=== PATIENT | male | born 1975 | race Caucasian/White ===

== ENCOUNTER 2017-04-01 04:56 | Emergency (ER) | payer MEDICAID, OTHER ==
--- NOTE | 2017-04-01 05:45 | C.PDOC ---
History Of Present Illness pt presents with abdominal pain, nausea, vomiting worsening over the last few days. Has had some chest discomfort associating with vomiting, but denies any chest pain at the present time. Speaking in complete sentences, No fever, chills. decreased po intake, other than alcohol . Pt is a heavy alcohol user. Time Seen by Provider: 04/01/17 05:45 Chief Complaint (Nursing): GI Problem History Per: Patient History/Exam Limitations: no limitations Onset/Duration Of Symptoms: Days Current Symptoms Are (Timing): Still Present Context: Other (alcohol) Severity: Moderate Pain Scale Rating Of: 5 Location Of Pain/Discomfort: Diffuse Radiation Of Pain To:: None Quality Of Discomfort: Dull, Aching, Cramping Associated Symptoms: Nausea, Vomiting, Loss Of Appetite Exacerbating Factors: Other (alcohol) Alleviating Factors: None Last Bowel Movement: Yesterday Recent travel outside of the [place]: No Additional History Per: Family Past Medical History Reviewed: Historical Data, Nursing Documentation, Vital Signs Vital Signs: Last Vital Signs Temp 98.4 F 04/01/17 05:06 Pulse 74 04/01/17 05:06 Resp 18 04/01/17 05:06 BP 110/74 04/01/17 05:06 Pulse Ox 97 04/01/17 06:01 - Medical History PMH: Anxiety, Asthma, Bipolar Disorder, Depression, Hepatitis - [facility] Procedures INDIVID PSYCHOTHERAP NEC (05/28/15) OTHER GROUP THERAPY (05/28/15) Family History: States: No Known Family Hx - Social History Hx Tobacco Use: Yes Hx Alcohol Use: Yes Hx Substance Use: Yes (heroin use) - Immunization History Hx Tetanus Toxoid Vaccination: No Hx Influenza Vaccination: No Hx Pneumococcal Vaccination: Yes Review Of Systems Constitutional: Negative for: Fever, Chills Eyes: Negative for: Vision Change ENT: Negative for: Throat Pain Cardiovascular: Negative for: Chest Pain Respiratory: Negative for: Shortness of Breath Gastrointestinal: Positive for: Nausea, Vomiting, Abdominal Pain Genitourinary: Negative for: Dysuria Musculoskeletal: Negative for: Back Pain Skin: Negative for: Rash Neurological: Negative for: Weakness Psych: Negative for: Anxiety Physical Exam - Physical Exam Appears: Non-toxic Skin: Warm, Dry Head: Normacephalic Eye(s): bilateral: Normal Inspection Oral Mucosa: Moist Neck: Trachea Midline, Supple Chest: Symmetrical Cardiovascular: Rhythm Regular Respiratory: No Rales, No Rhonchi, No Wheezing Gastrointestinal/Abdominal: Soft, Tenderness, No Distention, No Guarding, No Rebound Back: No CVA Tenderness Extremity: No Tenderness Extremity: Bilateral: Atraumatic, Normal Color And Temperature Neurological/Psych: Oriented x3, Normal Speech, Normal Cognition Gait: Steady ED Course And Treatment - Laboratory Results Result Diagrams: 04/01/17 06:12 04/01/17 06:12 O2 Sat by Pulse Oximetry: 97 Disposition Counseled Patient/Family Regarding: Studies Performed, Diagnosis - Disposition Disposition Time: 05:45 Condition: UNKNOWN - Clinical Impression Clinical Impression: Abdominal pain, Substance abuse, Alcohol abuse Physician Patient Turnover Patient Signed Over To: Tio See Handoff Comments: pending labs , ct scan and disposition
[2017-04-01] MEDS ORDERED: Sodium Chloride 0.9% 1,000 ML IV ONE (05:53)
[2017-04-01] MEDS ORDERED: Sodium Chloride 0.9% 1,000 ML ONE (06:14)
[2017-04-01 06:15] LABS: BASO % 0.8 % (0.0-2.0); EOS # 0.2 K/uL (0.0-0.7); EOS % 3.3 % (0.0-4.0); HEMATOCRIT 39.7 % (35.0-51.0); LYMPH # 1.6 K/uL (1.0-4.3); LYMPH % 27.6 % (20.0-40.0); MEAN CELL VOLUME 85.4 fL (80.0-94.0); MEAN CORPUSCULAR HEMOGLOBIN 28.9 pg (27.0-31.0); MEAN CORPUSCULAR HGB CONC 33.8 g/dL (33.0-37.0); MEAN PLATELET VOLUME 8.1 fL (7.2-11.7); MONO # 0.6 K/uL (0.0-0.8); MONO % 10.1 % (0.0-10.0); RED CELL DISTRIBUTION WIDTH 14.8 % (11.5-14.5); WHITE BLOOD COUNT 5.9 K/uL (4.8-10.8)
[2017-04-01 06:23] LABS: INR 1.1
[2017-04-01 06:29] LABS: CHLORIDE 96 mmol/L (98-107); POTASSIUM 3.5 mmol/L (3.6-5.2); SODIUM 134 mmol/L (132-148)
[2017-04-01 06:31] LABS: ALB/GLOB RATIO 0.9 (1.0-2.1); ALKALINE PHOSPHATASE 71 U/L (38-126); AST/SGOT 36 U/L (17-59); BILIRUBIN,TOTAL 1.1 mg/dL (0.2-1.3); CARBON DIOXIDE 27 mmol/L (22-30); GFR AFRICAN-AMERICAN > 60; TOTAL PROTEIN 7.6 g/dL (6.3-8.3)
[2017-04-01 06:32] LABS: ALCOHOL SERUM < 10 mg/dl (0-10); ALT/SGPT 33 U/L (21-72); BLOOD UREA NITROGEN 6 mg/dL (9-20); CALCIUM 8.6 mg/dl (8.6-10.4); GLUCOSE,RANDOM 101 mg/dL (75-110)
[2017-04-01 06:55] LABS: RBC URINE 1 /hpf (0-3); URINE BILIRUBIN NEGATIVE (NEGATIVE); URINE BLOOD NEGATIVE (NEGATIVE); URINE COLOR Yellow (YELLOW); URINE GLUCOSE (UA) NORMAL (Normal); URINE KETONE NEGATIVE (NEGATIVE); URINE LEUKOCYTE ESTERASE NEG Leu/uL (Negative); URINE PROTEIN NEGATIVE (NEGATIVE); WBC URINE < 1 /hpf (0-5)
[2017-04-01] MEDS ORDERED: Iodixanol 320 MG/ML 100 ML BOTTLE IV ONE (06:59)
[2017-04-01 07:26] VITALS: BP 98/65; PULSE 65; RESP 16; TEMP 98.5; O2SAT 99
--- NOTE | 2017-04-01 11:57 | CT ---
PROCEDURE: CT abdomen and pelvis dated 04/01/2017. HISTORY: Abdominal pain, alcohol abuse COMPARISON: Comparison made with prior study 05/23/2016 . TECHNIQUE: Contiguous axial images of the abdomen and pelvis. Oral contrast was administered. No IV contrast given. Coronal and Sagittal reformats generated. Radiation dose: Total exam DLP = 484.90 mGy-cm. This CT exam was performed using one or more of the following dose reduction techniques: Automated exposure control, adjustment of the mA and/or kV according to patient size, and/or use of iterative reconstruction technique. FINDINGS: LOWER THORAX: Mild bibasilar atelectasis. No evidence of effusion or basilar pneumothorax. Tiny hiatal hernia with slight wall thickening of the distal esophagus could be due to protrusion of gastric mucosa. Esophagitis not other intrinsic/invasive wall lesion not excluded. LIVER: Liver is mildly enlarged measuring over 18 cm in CC dimension. Mild fatty hepatic infiltration. No obvious hepatic mass collection or calcification. Portal and splenic veins are opacified. GALLBLADDER AND BILE DUCTS: Gallbladder appears incompletely distended. There is a small low-attenuation focus within the gallbladder lumen consistent with a tiny cholesterol stone. There is also new minimal gallbladder wall thickening and enhancement. Rule out cholecystitis. . No evidence of significant intra or extrahepatic biliary ductal dilatation. PANCREAS: The pancreas appears somewhat atrophic and fatty replaced. . There are vague infiltration changes also seen in the pancreatic of fat most pronounced in the pancreatic head region. Findings could represent concomitant mild pancreatitis. Recommend correlation serum amylase and lipase. SPLEEN: Spleen is enlarged measuring approximately 16.5 cm in CC dimension. No definitive splenic masses or collections seen. ADRENALS: There are no adrenal lesions. KIDNEYS AND URETERS: Unrem kidneys demonstrate symmetric nephrograms. No evidence of nephrolithiasis or hydronephrosis. BLADDER: Urinary bladder is incompletely distended which may account for slight thick-walled appearance. Muscular hypertrophy may contribute. Rule out cystitis or other intrinsic/invasive wall lesion. REPRODUCTIVE: Prostate gland measures approximately 4.4 cm in transverse dimension. . APPENDIX: Appendix is not seen with complete certainty. No obvious inflammatory changes right lower quadrant of the abdomen. BOWEL: Evaluation of the bowel is limited due to the lack of oral contrast material. Stomach is nondistended which in part accounts for thick-walled appearance however gastritis or other intrinsic/invasive wall lesion including but not limited to gastric carcinoma not excluded. Clinical correlation recommended. Endoscopy may be prudent for further evaluation if clinically indicated. Visualized loops of small bowel exhibit normal contour and caliber. No evidence acute mechanical small bowel obstruction. PERITONEUM: Unremarkable. No fluid collection. No free air. LYMPH NODES: Unremarkable. No enlarged lymph nodes. VASCULATURE: No evidence of abdominal aortic aneurysm. BONES: Mild multilevel degenerative spondylosis of the lower thoracic and lumbar spine. OTHER FINDINGS: None. IMPRESSION: Cholelithiasis with mild gallbladder wall thickening and enhancement. Rule out cholecystitis. Hepatomegaly. Fatty hepatic infiltration. Splenomegaly. Small hiatal hernia with mild wall thickening likely in part due to protrusion of gastric mucosa however esophagitis or other intrinsic invasive wall lesion not excluded. There is also wall thickening of the stomach in part due to incomplete distention although gastritis or other intrinsic invasive wall lesion not excluded. Followup endoscopy could be performed if clinically indicated to exclude other pathology as above The pancreas appears somewhat atrophic and fatty replaced. . There are vague infiltration changes also seen in the pancreatic of fat most pronounced in the pancreatic head region. Findings could represent concomitant mild pancreatitis. Recommend correlation serum amylase and lipase.
== END 2017-04-01 09:39 | disposition left against medical advice (07) ==
LOC: C.ER 04:56
DX: R10.9 Unspecified abdominal pain (principal); F19.10 Other psychoactive substance abuse, uncomplicated; F10.10 Alcohol abuse, uncomplicated; Y90.0 Blood alcohol level of less than 20 mg/100 ml; F41.9 Anxiety disorder, unspecified; F31.9 Bipolar disorder, unspecified
CPT/HCPCS: 74177; 80053; 81001; 83690; 85025; 85610; 85730; 86850; 86900; 96361; 96374; 96375; 99285; C9113; G0480; J2405; J7040; Q9967

== ENCOUNTER 2017-10-05 19:38 | Emergency (ER) | payer MEDICAID, OTHER ==
[2017-10-05 19:54] VITALS: BP 136/78; PULSE 86; RESP 16; TEMP 99.6; O2SAT 98
[2017-10-05] MEDS ORDERED: Clindamycin 600mg/50ml D5W 600 MG/50 ML VIAL IVPB SCH (20:30)
[2017-10-05] MEDS ORDERED: Vancomycin 1 GM 1 GM/250 ML BAG IV ONE (20:30)
[2017-10-05 20:31] LABS: BASO # 0.1 K/uL (0.0-0.2); BASO % 1.1 % (0.0-2.0); EOS # 0.1 K/uL (0.0-0.7); EOS % 1.1 % (0.0-4.0); HEMATOCRIT 39.5 % (35.0-51.0); LYMPH # 1.9 K/uL (1.0-4.3); LYMPH % 20.6 % (20.0-40.0); MEAN CELL VOLUME 87.2 fL (80.0-94.0); MEAN CORPUSCULAR HEMOGLOBIN 30.6 pg (27.0-31.0); MEAN CORPUSCULAR HGB CONC 35.1 g/dL (33.0-37.0); MEAN PLATELET VOLUME 7.8 fL (7.2-11.7); MONO # 0.6 K/uL (0.0-0.8); MONO % 6.7 % (0.0-10.0); RED CELL DISTRIBUTION WIDTH 12.8 % (11.5-14.5); WHITE BLOOD COUNT 9.4 K/uL (4.8-10.8)
[2017-10-05 20:42] LABS: ALCOHOL SERUM 34 mg/dl (0-10); ALKALINE PHOSPHATASE 85 U/L (38-126); ALT/SGPT 55 U/L (21-72); AST/SGOT 48 U/L (17-59); BILIRUBIN,TOTAL 0.8 mg/dL (0.2-1.3); BLOOD UREA NITROGEN 9 mg/dL (9-20); CALCIUM 8.2 mg/dl (8.6-10.4); CARBON DIOXIDE 28 mmol/L (22-30); CHLORIDE 95 mmol/L (98-107); GFR AFRICAN-AMERICAN > 60; GLUCOSE,RANDOM 90 mg/dL (75-110); POTASSIUM 3.8 mmol/L (3.6-5.2); SODIUM 132 mmol/L (132-148); TOTAL PROTEIN 8.4 g/dL (6.3-8.3)
[2017-10-05] MEDS ORDERED: Clindamycin 600mg/50ml D5W 600 MG/50 ML VIAL IVPB ONE (20:45)
[2017-10-05 20:49] LABS: ALB/GLOB RATIO 0.9 (1.0-2.1)
--- NOTE | 2017-10-05 21:20 | C.PDOC ---
History Of Present Illness 42 year old male with a Hx of IV drug abuse presents to the ER with a complaint of a draining abscess to the right calf. Patient reports he attempted to shoot up heroin in his right leg 3 weeks ago. Denies fever, chills, or weakness/ numbness of the right leg. Time Seen by Provider: 10/05/17 20:06 Chief Complaint (Nursing): Abnormal Skin Integrity History Per: Patient History/Exam Limitations: no limitations Onset/Duration Of Symptoms: Days Current Symptoms Are (Timing): Still Present Location Of Injury: Right: Leg, Posterior: Leg Quality Of Symptoms: Draining (Abscess) Recent travel outside of the [place]: No Past Medical History Reviewed: Historical Data, Nursing Documentation, Vital Signs Vital Signs: Last Vital Signs Temp 99.6 F 10/05/17 19:52 Pulse 86 10/05/17 19:52 Resp 16 10/05/17 19:52 BP 136/78 10/05/17 19:52 Pulse Ox 98 10/05/17 21:27 - Medical History PMH: Anxiety, Asthma, Bipolar Disorder, Depression, Hepatitis - [facility] Procedures INDIVID PSYCHOTHERAP NEC (05/28/15) OTHER GROUP THERAPY (05/28/15) Family History: States: Unknown Family Hx - Social History Hx Tobacco Use: Yes Hx Alcohol Use: Yes Hx Substance Use: Yes (heroin use) - Immunization History Hx Tetanus Toxoid Vaccination: No Hx Influenza Vaccination: No Hx Pneumococcal Vaccination: Yes Review Of Systems Constitutional: Negative for: Fever, Chills Musculoskeletal: Positive for: Leg Pain Skin: Positive for: Other (Draining abscess) Neurological: Negative for: Weakness, Numbness Physical Exam - Physical Exam Appears: Non-toxic Skin: Warm, Dry Head: Atraumatic, Normacephalic Eye(s): bilateral: Normal Inspection Oral Mucosa: Moist Chest: Symmetrical, No Tenderness Cardiovascular: Rhythm Regular Respiratory: Normal Breath Sounds, No Rales, No Rhonchi, No Wheezing Gastrointestinal/Abdominal: Soft, No Tenderness Extremity: Other (Lemon sized abscess to right calf with purulent drainage and surrounding erythema.) Pulses: Left Dorsalis Pedis: Normal, Right Dorsalis Pedis: Normal Neurological/Psych: Oriented x3, Normal Speech ED Course And Treatment - Laboratory Results Result Diagrams: 10/05/17 20:27 10/05/17 20:27 O2 Sat by Pulse Oximetry: 98 (Room air) Pulse Ox Interpretation: Normal Progress Note: Blood work ordered. Clindamycin and vancomycin administered. - Physician Consult Information Physician Contacted: Wong Tay Outcome Of Conversation: Patient to be admitted for surgical consultation and treatment with IV antibiotics. 23:00 Patient leaving the ED because his friend is not allowed to go to the floor with him. He states that "he doesn't care if his leg falls off". Patient walked out of the ED. Disposition - Disposition Disposition: AGAINST MEDICAL ADVICE Disposition Time: 23:15 Condition: FAIR - Clinical Impression Clinical Impression: Cellulitis, Abscess - Scribe Statement The provider has reviewed the documentation as recorded by the Scribe Rodri Duke All medical record entries made by the Evelinibe were at my direction and personally dictated by me. I have reviewed the chart and agree that the record accurately reflects my personal performance of the history, physical exam, medical decision making, and the department course for this patient. I have also personally directed, reviewed, and agree with the discharge instructions and disposition.
== END 2017-10-05 22:30 | disposition left against medical advice (07) ==
LOC: C.ER 19:38 → C.9E 20:53 → UNDOADMIN 20:53 → C.9E 21:53 → C.3T 21:53 → C.9E 22:50 → C.3T 22:50 → UNDODISIN 22:50
DX: L03.115 Cellulitis of right lower limb (principal); F11.90 Opioid use, unspecified, uncomplicated; K75.9 Inflammatory liver disease, unspecified; J45.909 Unspecified asthma, uncomplicated; L02.415 Cutaneous abscess of right lower limb; F32.9 Major depressive disorder, single episode, unspecified; F41.9 Anxiety disorder, unspecified
CPT/HCPCS: 80053; 80320; 85025; 86703; 87040; 87070; 96365; 96367; 99284; J3370